=== PATIENT | female | born 1940 ===

== ENCOUNTER 2017-07-20 07:04 | Day surgery (SDC) | payer MEDICARE, OTHER ==
[2017-07-19 13:54] VITALS: BMI 29.1
[2017-07-20] MEDS ORDERED: Lidocaine 2% Inj (20ml) ONE (08:44)
[2017-07-20] MEDS ORDERED: Ropivacaine 0.5% 30ML IV ONE (08:44)
[2017-07-20] MEDS ORDERED: Etomidate 20 mg/10ml Inj IV ONE (08:45)
[2017-07-20] MEDS ORDERED: Succinylcholine 200 mg/10 ml Inj IV ONE (08:45)
[2017-07-20] MEDS ORDERED: Lidocaine 4% (Laryng-O-Jet) Kit MM ONE (08:45)
[2017-07-20] MEDS ORDERED: Midazolam 2 MG/2 ML VIAL ONE (08:45)
[2017-07-20] MEDS ORDERED: Liquid Adhesive TOP ONE (08:48)
[2017-07-20] MEDS ORDERED: Bacitracin Ointment 30 GM TUBE ONE (08:48)
[2017-07-20] MEDS ORDERED: Lactated Ringer's 1,000 ML IV ONE (10:02)
--- NOTE | 2017-07-20 10:28 | PCM.SURG1 ---
Surgeon's Initial Post Op Note - Surgeon's Notes Surgeon: Dr. Church Tie Sawyer: Dr. Christensen DPM Type of Anesthesia: General LMA, Local Anesthesia Administered By: Dr. Corona Pre-Operative Diagnosis: left distal radius fracture Operative Findings: see dictation Post-Operative Diagnosis: same Operation Performed: left distal radius ORIF Specimen/Specimens Removed: none Estimated Blood Loss: EBL {In ML}: 10 Blood Products Given: N/A Drains Used: No Drains Post-Op Condition: Good Date of Surgery/Procedure: 07/20/17 Time of Surgery/Procedure: 09:00
--- NOTE | 2017-07-20 10:53 | PCM.ANESB4 ---
Infraclavicular Block - Femoral Nerve Block Date of Procedure: 07/20/17 Anesthesiologist: Cj Pre-Procedure Diagnosis: Left radial fracture Post-Procedure Diagnosis: Same Procedure Performed: Brachial Plexus at the Infraclavicular area Left - Procedure Infraclavicular Block: The procedure was explained to the patient that it is for the post-operative pain management. Consent was obtained after a thorough discussion with the patient regarding the benefits and possible complications of local anesthetic block of the brachial plexus at the infraclavicular area. The patient was brought to the operating room and standard monitors were applied. Time-out was held with the circulating nurse to confirm the correct surgery and the appropriate block. After surgery was completed and extubation, patient's head was gently rotated away from the operative ____left____ shoulder and the area medial to the coracoid process and inferior to the clavicle was carefully palpated. The ultrasound transducer was then applied to the skin in the transverse plane and the brachial plexus was visualized surrounding the axillary artery and deep to the pectoralis major and minor muscles. After thorough identification, this area was prepped with Betadine solution three times and 1 % Lidocaine was injected subcutaneously for topical anesthesia. At this point, a #21 gauge Stimuplex 4-inch needle was inserted cephalad to the ultrasound transducer and inferior to the clavicle in-plane towards the posterior aspect of the axillary artery. Needle advancement was performed carefully under ultrasound visualization. Nerve stimulator was used and twitch of the affected extremity including fingers, hand, wrist and elbow was obtained at current of __0.4___MA. After repeated negative aspiration, __20___cc of __.5_ __% ropivacaine was injected. Under ultrasound guidance the local anesthetics were observed surrounding the cords of the brachial plexus. The needle was removed intact and sterile dressing was applied. The patient had stable vital signs, was conscious and in no apparent distress. The patient tolerated the infraclavicular block of the brachial plexus well with stable vital signs was transferred to PACU.
[2017-07-20] MEDS ORDERED: Dexamethasone 4 mg/1 ml IVP PRN (10:54)
[2017-07-20] MEDS ORDERED: HYDROmorphone 0.5 mg/0.5 ml ISec IVP PRN (10:54)
[2017-07-20] MEDS ORDERED: BSS 15 ML SOL IR PRN (12:29)
[2017-07-20 12:42] VITALS: RESP 18
--- NOTE | 2017-07-20 13:15 | CP.PCM.PN ---
Subjective - Date & Time of Evaluation Date of Evaluation: 07/20/17 Time of Evaluation: 13:15 - Subjective Subjective: Called to assess patient regarding left eye irritation. Patient complains of "sand-like" sensation in the eye. Eye was taped close during the surgery and there was no instrumentation near the face, head, or eyes during the surgery. On examination, there was no visual deficits, field cut, or erythema/ irritation. No foreign body was seen. BSS was given. Patient was instructed to see use air drops for moisturizing and to contact ophtho if problem persists or worsens. She expressed understanding. Objective - Vital Signs/Intake and Output Vital Signs (last 24 hours): Temp Pulse Resp BP Pulse Ox 97.2 F L 73 18 121/66 96 07/20/17 12:40 07/20/17 12:40 07/20/17 12:40 07/20/17 12:40 07/20/17 12:40 Intake and Output: 07/20/17 07/20/17 06:59 18:59 Intake Total 950 Balance 950 - Medications Medications: Current Medications Ringer's Solution (Bss 15 Ml) 15 ml IR PRN PRN PRN Reason: Eye itchiness Last Admin: 07/20/17 12:30 Dose: 15 ml
[2017-07-20 15:55] VITALS: BP 132/70; PULSE 89; TEMP 98.1; O2SAT 94
--- NOTE | 2017-07-20 17:14 | RAD ---
PROCEDURE: Left Wrist Radiographs. HISTORY: s/p left wrist surgery COMPARISON: None. FINDINGS: BONES: Major fracture fragments distal radius anatomically aligned. No hardware abnormalities detected JOINTS: Normal. No dislocation. SOFT TISSUES: Normal. OTHER FINDINGS: None. IMPRESSION: Satisfactory postoperative status. Limitations of the current study: Detail obscured by overlying fiberglass cast.
--- NOTE | 2017-07-21 02:46 | OP ---
PROCEDURE DATE: 07/20/2017 PREOPERATIVE DIAGNOSIS: Displaced left distal radius fracture three part. POSTOPERATIVE DIAGNOSIS: Displaced left distal radius fracture three part. PROCEDURE: Left distal radius open reduction and internal fixation using Synthes volar wrist plate, [id number]. SURGEON: Omkar Cuhrch MD TYPE OF ANESTHESIA: Regional and supplemental intravenous sedation. ESTIMATED BLOOD LOSS: Minimal. COMPLICATIONS: None. OPERATIVE FINDINGS: Displaced distal radius fracture anatomical reduction with rigid fixation was obtained. DISPOSITION: Stable to recovery room. DESCRIPTION OF PROCEDURE: The patient was taken to the operating room and placed supine on the operating room table. After adequate regional anesthesia and supplemental intravenous sedation was given by the anesthesiologist, a well-padded nonsterile tourniquet was placed in the patient's left upper extremity. The entire extremity was then prepped and draped in a standard surgical fashion. Prophylactic antibiotics were given. The proposed incision was marked out with a sterile marking pen. This was a longitudinal incision along the course of the flexor carpi radialis tendon. The incision angled across the wrist flexion crease, the arm was elevated and exsanguinated with an Esmarch bandage. The tourniquet was inflated to 250 mmHg and the Esmarch bandage was removed. An incision was made through the skin only. All superficial veins were cauterized. Dissection was performed down to the superficial layer of the flexor carpi radialis sheath. It was incised along its radial-most border. The FCR tendon was retracted ulnarly. The floor of the flexor carpi radialis sheath was incised as well along its radial-most border. Dissection was then carried down between the radial artery and FPL, any intervening small branches of the radial artery were cauterized. The pronator quadratus was then visualized and was incised in an L-shaped fashion. The fracture was then visualized and was displaced using a combination of curettes, rongeurs, and all other callus was removed. The fracture site was irrigated with copious amount of normal saline, reduction maneuver was then performed. Next, a volar Synthes plate was applied to the distal radius, it was temporarily fixed with Chel wires and its location was assessed under fluoroscopy. Excellent placement of the plate was seen and near anatomic reduction was obtained as well. Three 3.5 mm screws were placed in the proximal part of the plate followed by the fixed angle pegs in the distal aspect of the plate. Once again, the fracture was assessed under fluoroscopy and excellent screw placement with anatomic reduction was seen. The temporary K-wires were removed, all screws were tightened once again. Image intensification revealed excellent placement of all screws with no screws penetrating the radiocarpal joint or DRUJ. All screw length was noted to be of excellent length. The wound was irrigated with copious amount of saline. DRUJ was then assessed and was stable. Full passive range of motion of the wrist and elbow was obtained. The tourniquet was deflated. Hemostasis was obtained. The skin was closed with 4-0 nylon interrupted sutures. Sterile dressing consisting of fluffs, 4 x 4 and volar wrist splint was placed. The patient tolerated the procedure well and was brought to recovery room, awake, alert and in an excellent condition. Omkar Church MD REBEK[facility]
== END 2017-07-20 16:30 | disposition home or self-care (01) ==
LOC: H.OPSURG 07:04
PROVIDERS: ATTEND Orthopaedic Surgery
DX: S52.592A Other fractures of lower end of left radius, initial encounter for closed fracture (principal); X58.XXXA Exposure to other specified factors, initial encounter
CPT/HCPCS: 25609; 73110; C1713; J0330; J2001; J2250; J2405; J3010; J7030; J7120